=== PATIENT | male | born 1970 | race Caucasian/White ===

== ENCOUNTER 2016-04-19 10:57 | Emergency (ER) | payer OTHER ==
[~2016-04-19] VITALS: Ht 182.9 cm; Wt 100.0 kg
[2016-04-19 11:02] VITALS: BP 180/113; PULSE 88; RESP 14; O2SAT 96
--- NOTE | 2016-04-19 11:09 | ED.REPORT ---
HPI-Chest Pain 40 and Over Date of Service Apr 19, 2016 ED Provider: Dr. Ocampo Pt is a 45 y/o male presenting to the ED c/o chest tightness with radiation to the left shoulder and arm onset 30 minutes ago. The patient's chest pain began when he found out that his son's acquaintance had written threats towards his family. [facility] [place] [facility] about the threat of harm to his family when his chest pain began. He c/o associated lightheadedness , SOB, left arm numbness, stress, anxiety. Pt denies peripheral edema, abdominal pain, nausea, vomiting, fever, chills, cough, diaphoresis. His new PCP told him that he is "high risk for an NJ because of his high BP". He was started on an antihypertensive recently (he does not recall the name). His father had an NJ at age 40. He denies any mechanism of injury to the shoulder. His pain is not exacerbated with exertion. Nursing Notes Stated Complaint: POSSIBLE HEART ATTACK Chief Complaint: Chest Pain Nursing Notes Reviewed: Yes Allergies: Coded Allergies: meperidine (Verified Allergy, Intermediate, FEELS LIKE CRAWLING OUT OF SKIN, 04/19/16) Scheduled Amlodipine (Amlodipine) 5 Mg Tablet 5 MG PO DAILY General Time Seen by MD: 11:09 Chief Complaint Chest pain Hx Obtained From: Patient Arrived By: Walk-in Sudden in Onset?: Yes Onset Occurred: 31 - 45 minutes ago Symptom Duration: Since onset Location: : Substernal Quality: Pressure Radiation: : Arm left Migration/Movement: Reports: None Severity: Current: Mild Severity: Maximum: Moderate Recent Healthcare: No recent hospitalization, Recent doctor visit Similar Sx Previous: No Past Medical History Past Medical History Hypertension Past Surgical History None reported Family History NJ in father age 40-50 Smoking History Unknown if Ever Smoker Ambulatory Status Independent Review of Systems Constitutional: Denies: Chills, Fever Respiratory: Reports: Shortness of breath, Denies: Non-productive cough Cardiovascular: Reports: Chest pain, Denies: Dyspnea on exertion GI: Denies: Abdominal pain, Nausea, Vomiting Skin: Denies Diaphoresis, Denies Swelling Neurologic: Reports: Lightheaded, Numbness Psychiatric: Reports: Anxiety Complete sys rev & neg: except as marked. Physical Exam Initial Vital Signs Vital Signs (First) Date Time Temp Pulse Resp B/P Pulse Ox O2 Delivery O2 Flow Rate FiO2 04/19/16 11:02 36.4 88 14 180/113 96 Room Air Initial VS: Reviewed, Vital signs abnormal Head / Eyes: Atraumatic, Normocephalic, PERRL ENT: Mucous membranes moist, Conjunctiva normal, No scleral icterus Extremities: Vascular intact, Neuro intact, No swelling, No tenderness Skin: Warm, Dry, No cyanosis Neurologic: Alert, Oriented, Nonfocal Psychiatric: Mood/affect normal, Behavior normal, Normal thought content General/Constitutional: Awake, Alert, No acute distress, Well appearing, Cooperative, Not toxic appearing Hypertensive Respiratory / Chest: Atraumatic, Breath sounds NL, Breath sounds = bilat, No respiratory distress, No rales, No rhonchi, No wheezing, No retractions, No stridor, No chest tenderness, No chest wall deformity, No crepitus Cardiovascular: Heart rate NL, Regular rhythm, Heart sounds NL, No gallop, No murmurs, No rubs, Cap refill not delayed, Peripheral circulation NL Abdomen: Atraumatic, Soft, Non-tender Neck: Atraumatic, Supple, No meningismus, Full range of motion, No swelling, No JVD Upper Extremity / MS: Atraumatic, Inspection NL, Full range of motion, No swelling, Non-tender, No snuffbox tenderness, No erythema, No deformity, Neurologic intact, Vascular intact, No ligamentous injury, Tendon function NL, No compartment syndrome, No circumferential injury, No clubbing/cyanosis, No edema 2+ radial pulse LUE Interpretation & Diagnostics Lab Results Interpretation Result Diagram: 04/19/16 1125 04/19/16 1125 Test 04/19/16 11:25 04/19/16 13:20 White Blood Count 6.6th/mm3 (3.8-10.1) Red Blood Count 4.57mil/mm3 (4.40-5.80) Hemoglobin 14.5g/dL (13.8-17.2) Hematocrit 42.0% (41.0-50.0) Mean Corpuscular Volume 91.9fL (81-100) Mean Corpuscular Hemoglobin 31.7pg (27.0-35.0) Mean Corpuscular Hemoglobin Concent 34.5% (32.0-37.0) Red Cell Distribution Width 11.9% (12.3-15.4) Platelet Count 285bil/L (150-400) Neutrophils (%) (Auto) 63.8% (40-74) Lymphocytes (%) (Auto) 24.1% (14-46) Monocytes (%) (Auto) 8.7% (4-12) Eosinophils (%) (Auto) 2.3% (0-5) Basophils (%) (Auto) 0.8% (0-3) Sodium Level 139mEq/L (134-144) Potassium Level 4.3mEq/L (3.5-5.2) Chloride Level 102mEq/L (97-108) Carbon Dioxide Level 25mmol/L (18-29) Blood Urea Nitrogen 19mg/dL (6-24) Creatinine 1.03mg/dL (0.76-1.27) Estimat Glomerular Filtration Rate 83mL/min (>59) Glucose Level 106mg/dL (60-99) Calcium Level 9.1mg/dL (8.5-10.1) Magnesium Level 2.1mg/dL (1.6-2.6) Total Bilirubin 0.2mg/dL (0.0-1.2) Aspartate Amino Transf (AST/SGOT) 18U/L (0-50) Alanine Aminotransferase (ALT/SGPT) 25U/L (0-44) Alkaline Phosphatase 70U/L (25-150) Total Protein 7.0g/dL (6.4-8.4) Albumin 4.4g/dL (3.4-5.0) Hold [place] Top Tube Received (Received) Troponin T < 0.010ug/L (0.0-0.011) ECG Interpretation ECG Interpretation: Sinus rhythm rate 80 Probable LVH Time: 11:36 Interpreted by: ED physician Normal ECG Interpretation: No acute ischemic changes X-Ray Chest Interpretation Chest Xray Interpretation: IMPRESSION: No acute cardiopulmonary disease process. Dictated by: Arlette Tinajero MD, PhD on 04/19/2016 at 12:03 Approved by: Arlette Tinajero MD, PhD on 04/19/2016 at 12:04 View: Portable, 1 view Interpretation / Wet Read by: Interpret - Radiologist Re-Eval/Medical Decision Med Decision/Clinical Course Symptoms do not seem to represent acute coronary syndrome, symptoms have resolved, pt will be discharged with better blood pressure management and recommended close outpatient follow-up for stress testing. Return percussions given. Time of Eval: 12:46 Re-Evaluation/Progress Note: Pt rechecked. He is feeling improved. He adds an aspect to his story that his chest pain began during emotional distress. Time of Eval: 14:03 Re-Evaluation/Progress Note: Pt rechecked. Informed pt of plan for treatment. Pt understands and agrees with plan for treatment. F/U and RTER warnings given. All questions addressed. Counseled Regarding: Diagnosis, Lab results, Need for follow-up, When/why to return to ED Discharge & Departure Primary Impression: Non-cardiac chest pain Disposition: Home Discharge Condition All VS Reviewed: Yes Condition: Stable Patient Instructions: Chest Pain (ED) Additional Instructions: Overall, there are no signs or symptoms of heart attack. Begin taking amlodipine for blood pressure. Begin taking 81 mg of aspirin daily. Call your primary care doctor today for close follow-up and outpatient cardiac testing. Return to the ER if you develop persistent chest pain, or other concerns. Tiffani Attestation Portions of this note were transcribed by Ivan Regan. I, Dr. Ocampo personally performed the history, physical exam and medical decision-making; I reviewed and confirmed the accuracy of the information in the transcribed note. Signed by Tiffani Choi, 04/19/16 - João Steen DO Apr 19, 2016 11:09 IVAN REGAN Apr 19, 2016 11:19
[2016-04-19] MEDS ORDERED: Ondansetron 2 mg/mL 2 mL Inj IVPUSH PRN (11:25)
[2016-04-19 11:41] LABS: BASOPHILS % (AUTO) 0.8 % (0-3); EOSINOPHILS % (AUTO) 2.3 % (0-5); MONOCYTES % (AUTO) 8.7 % (4-12); Mean Corpuscular Hemoglobin 31.7 pg (27.0-35.0); Mean Corpuscular Volume 91.9 fL (81-100); NEUTROPHILS % (AUTO) 63.8 % (40-74); Platelet Count 285 bil/L (150-400)
[2016-04-19 11:51] VITALS: BP 143/82; PULSE 109; RESP 18; O2SAT 96
[2016-04-19 12:04] LABS: TROPONIN T 0.01 ug/L (0.0-0.011)
--- NOTE | 2016-04-19 12:05 | DRSVH ---
PROCEDURE: X-RAY CHEST ONE VIEW, PORTABLE ([id number]) INDICATIONS: Chest pain. TECHNIQUE: One view of the chest was acquired. COMPARISON: [facility], , CHEST 2 VIEW, 10/22/2012, 21:20. FINDINGS: Surgical changes and devices: None. Lungs and pleura: No pleural effusions or pneumothorax. Lungs are clear. Mediastinum: Mediastinal contours appear normal. Heart size is normal. Bones and chest wall: No suspicious bony lesions. Overlying soft tissues appear unremarkable. IMPRESSION: No acute cardiopulmonary disease process. Dictated by: Arlette Tinajero MD, PhD on 04/19/2016 at 12:03 Approved by: Arlette Tinajero MD, PhD on 04/19/2016 at 12:04
[2016-04-19 12:15] LABS: Magnesium 2.1 mg/dL (1.6-2.6)
[2016-04-19 12:24] VITALS: BP 140/80; PULSE 72; RESP 14; O2SAT 95
[2016-04-19] MEDS ORDERED: AMLO5TAB2 PO (13:59)
[2016-04-19 14:19] VITALS: BP 137/89; PULSE 72; RESP 20; O2SAT 98
== END 2016-04-19 14:20 | disposition home or self-care (01) ==
LOC: SED 10:57
DX: R07.89 Other chest pain (principal); R42 Dizziness and giddiness; R06.02 Shortness of breath; R20.0 Anesthesia of skin; F43.9 Reaction to severe stress, unspecified; F41.9 Anxiety disorder, unspecified; I10 Essential (primary) hypertension; Z88.5 Allergy status to narcotic agent
CPT/HCPCS: 36415; 71010; 80053; 83735; 84484; 85025; 93005; 96374; 96375; 99285; J1200; J2270; J2405